=== PATIENT | male | born 1990 | race Caucasian/White ===

== ENCOUNTER 2016-10-30 11:13 | Emergency (ER) | payer SELFPAY ==
[~2016-10-30] VITALS: Ht 180.3 cm; Wt 71.7 kg
[2016-10-30 11:35] VITALS: BP 130/85
== END 2016-10-30 21:00 | disposition left against medical advice (07) ==
LOC: ER 11:13
DX: M79.671 Pain in right foot (principal); Z53.21 Procedure and treatment not carried out due to patient leaving prior to being seen by health care provider